=== PATIENT | male | born 1995 | race African-American/Black ===

== ENCOUNTER 2018-02-22 02:14 | Emergency (ER) | payer OTHER ==
[~2018-02-22] VITALS: Ht 162.6 cm; Wt 79.4 kg
[2018-02-22 02:18] VITALS: BP 150/96
[2018-02-22] MEDS ORDERED: MUCINEX DM ER1 EACH PO (03:04)
[2018-02-22] MEDS ORDERED: MUCINEX FAST-M180 ML PO (03:13)
== END 2018-02-22 03:18 | disposition home or self-care (01) ==
LOC: ER 02:14
DX: J06.9 Acute upper respiratory infection, unspecified (principal); H61.22 Impacted cerumen, left ear; F17.210 Nicotine dependence, cigarettes, uncomplicated; J45.909 Unspecified asthma, uncomplicated